=== PATIENT | male | born 1945 | race Two or more races ===

== ENCOUNTER → 2017-03-01 | Outpatient (CLI) | payer MEDICARE ==
[2017-03-01 10:38] LABS: APPEARANCE,URINE CLEAR; BILIRUBIN,URINE NEGATIVE (NEGATIVE); GLUCOSE, URINE NEGATIVE (NEGATIVE); KETONES,URINE NEGATIVE (NEGATIVE); LEUKOCYTE ESTERASE,URINE NEGATIVE (NEGATIVE); NITRITE,URINE NEGATIVE (NEGATIVE); PROTEIN,URINE NEGATIVE (NEGATIVE); UROBILINOGEN,URINE NEGATIVE mg/dL (<2.0)
[2017-03-01 10:40] LABS: ABSOLUTE EOSINOPHILS # (AUTO) 0.2 10^3/uL (0.0-0.6); ABSOLUTE LYMPHOCYTES (AUTO) 1.5 10^3/uL (0.5-4.7); ABSOLUTE MONOCYTES (AUTO) 0.6 10^3/uL (0.1-1.4); ABSOLUTE NEUT (AUTO) 3.2 10^3/uL (1.7-8.2); BASOPHILS % (AUTO) 0.6 % (0-2); EOSINOPHILS % (AUTO) 3.1 % (0-6); HEMATOCRIT 37.8 % (37.9-51.0); HEMOGLOBIN 11.9 g/dL (13.5-17.0); HGB HCT DIFFERENCE -2.1; LYMPHOCYTES % (AUTO) 27.1 % (13-45); MEAN CORPUSCULAR HEMOGLOBIN 27.6 pg (27.0-33.4); MEAN CORPUSCULAR HGB CONC 31.6 g/dL (32.0-36.0); MEAN CORPUSCULAR VOLUME 88 fl (80-97); MONOCYTES % (AUTO) 11.3 % (3-13); RED BLOOD COUNT 4.32 10^6/uL (4.35-5.55); RED CELL DISTRIBUTION WIDTH 14.9 % (11.5-14.0); SEGMENTED NEUTROPHILS % (AUTO) 57.9 % (42-78); WHITE BLOOD COUNT 5.6 10^3/uL (4.0-10.5)
--- NOTE | 2017-03-01 10:46 | RADIOLOGY REPORT (SQ) ---
EXAM DESCRIPTION: CHEST PA/LATERAL COMPLETED DATE/TIME: 03/01/2017 10:37 am REASON FOR STUDY: PRE OP COMPARISON: None. EXAM PARAMETERS: NUMBER OF VIEWS: two views TECHNIQUE: Digital Frontal and Lateral radiographic views of the chest acquired. RADIATION DOSE: NA LIMITATIONS: none FINDINGS: LUNGS AND PLEURA: No opacities, masses or pneumothorax. No pleural effusion. MEDIASTINUM AND HILAR STRUCTURES: No masses or contour abnormalities. HEART AND VASCULAR STRUCTURES: Heart normal size. No evidence for failure. BONES: No acute findings. HARDWARE: None in the chest. OTHER: No other significant finding. IMPRESSION: NO SIGNIFICANT RADIOGRAPHIC FINDING IN THE CHEST. TECHNICAL DOCUMENTATION: JOB ID: [id number] [employer]- All Rights Reserved
[2017-03-01 11:12] LABS: ANION GAP 12 (5-19); BLOOD UREA NITROGEN 22 mg/dL (7-20); CALCIUM 9.8 mg/dL (8.4-10.2); CARBON DIOXIDE 23 mmol/L (22-30); CHLORIDE 107 mmol/L (98-107); CREATININE RESULT 1.13 mg/dL (0.52-1.25); GLUCOSE 133 mg/dL (75-110); POTASSIUM 4.1 mmol/L (3.6-5.0); SODIUM 141.7 mmol/L (137-145)
--- NOTE | 2017-03-01 20:40 | EKG REPORT ---
SEVERITY:- ABNORMAL ECG - SINUS RHYTHM NONSPECIFIC INTRAVENTRICULAR CONDUCTION DELAY LEFT VENTRICULAR HYPERTROPHY : Confirmed by: Sydnee Roberts 01-Mar-2017 20:40:11
== END ==
LOC: OD 09:31
PROVIDERS: ATTEND Orthopaedic Surgery
DX: Z01.818 Encounter for other preprocedural examination (principal)
CPT/HCPCS: 36415; 71020; 80048; 81001; 83036; 85025; 93005; 93010

== ENCOUNTER 2017-03-29 05:31 | Inpatient (IN) | payer MEDICARE ==
[~2017-03-29 05:31] MED LIST: CEFAZOLIN INJ 1 GM VIAL IV PRN; IBUPROFEN 800 MG in NORMAL SALINE 250 ML IV PRN; LACTATED RINGERS 1000 ML IV PRN; LANSOPRAZOLE 15 MG TAB.RAP.DR PO PRN; LIDOCAINE 0.5% INJ-PF (5 MG/ML) 50 ML SDV SUBCUT PRN; OXYCODONE HCL SR 10 MG TABLET PO PRN; VANCOMYCIN HCL 1,000 MG in DEXTROSE 5%-WATER 250 ML IV PRN
[2017-03-29 06:43] LABS: POTASSIUM 4.4 mmol/L (3.6-5.0)
[2017-03-29] MEDS ORDERED: FENTANYL CITRATE INJ/PF 100 MCG/2 ML AMPUL ONE (06:46)
[2017-03-29] MEDS ORDERED: THROMBIN (BOVINE) 5000 UNIT EPITAXIS KIT ONE (06:46)
[2017-03-29] MEDS ORDERED: THROMBIN (BOVINE) TOPICAL 20000 UNIT VIAL ONE (06:46)
[2017-03-29] MEDS ORDERED: MIDAZOLAM 2 MG/2 ML INJ ONE (06:46)
[2017-03-29] MEDS ORDERED: BUPIVACAINE INJ/PF LIPOSOME/PF 266 MG/20 ML SDV ONE (06:46)
[2017-03-29] MEDS ORDERED: EPHEDRINE SULFATE INJ 50 MG/1 ML AMPULE ONE (06:47)
[2017-03-29] MEDS ORDERED: TRANEXAMIC ACID INJ/PF 1,000 MG/10 ML SDV IV ONE ×2 (06:47→10:30)
[2017-03-29] MEDS ORDERED: ACETAMINOPHEN 0 ML IV ONE (06:47)
[2017-03-29] MEDS ORDERED: IBUPROFEN INJ 800 MG/8 ML VIAL IV ONE (06:47)
[2017-03-29] MEDS ORDERED: PROPOFOL INJ 200 MG/20 ML VIAL IV ONE (06:47)
[2017-03-29] MEDS ORDERED: FENTANYL CITRATE INJ/PF 250 MCG/5 ML AMPULE ONE (07:00)
[2017-03-29] MEDS ORDERED: PROMETHAZINE HCL INJ 25 MG/1 ML VIAL IV PRN (08:16)
[2017-03-29] MEDS ORDERED: FENTANYL CITRATE INJ/PF 100 MCG/2 ML AMPUL IV PRN ×3 (08:16)
[2017-03-29] MEDS ORDERED: DIPHENHYDRAMINE HCL 50 MG/ML VIAL IV PRN ×2 (08:16→08:42)
--- NOTE | 2017-03-29 08:33 | Operative Report ---
Operative Report DATE OF SURGERY: 03/29/17 PREOPERATIVE DIAGNOSIS: Right knee arthritis OPERATION: Right knee arthroplasty SURGEON: LUIS EDUARDO MIRELES 1ST MICROFILM CAMERA OPERATOR: GRAZYNA JASSO ANESTHESIA: Spinal TISSUE REMOVED OR ALTERED: Bone to pathology ESTIMATED BLOOD LOSS: 100 PROCEDURE: Implants used: Femur: Sedalia triathlon #6 CR femur Tibia: 6 tibia Tibial liner: 9 mm CS insert Patella: 35 mm oval patella Procedure with the patient supine on the operating table the right the limb is prepped and draped in a sterile fashion. The limb was elevated for exsanguination and the tourniquet inflated to 280 torr. A standard midline median parapatellar approach the knee is taken. Access is gained to the femoral canal through the intercondylar notch. Intramedullary alignment instrumentation used to resect 10 mm of distal femur in 5 of valgus. Sizing guide indicated a size 6 femur. Appropriate cutting jig is then used to fashion anterior posterior and chamfer cuts. A trial reduction femurs performed and this is judged to be adequate. Attention was next turned to the tibia. Using an extra medullary alignment system 9 millimeters was resected off the lateral tibial plateau. This is sized to a size 6 tibia. A trial reduction was now performed with a 6 femur and a 6 tibia using a 9 millimeters spacer. It is full extension and central patellofemoral tracking. The articular surface the patella was next resected using an oscillating saw. All trial implants were removed. Polymethylmethacrylate is mixed and used to cement the above implants in place. On adequate curing the cement excess cement was removed the tourniquet was deflated hemostasis obtained the wound is then closed in layers using interrupted Vicryl followed by nikolai. A sterile compressive dressing was applied and the patient returned to recovery room in satisfactory condition.
[2017-03-29] MEDS ORDERED: ZOLPIDEM TARTRATE PO PRN (08:41)
[2017-03-29] MEDS ORDERED: MORPHINE SULFATE 10 MG/ML INJ IV PRN ×3 (08:42)
[2017-03-29] MEDS ORDERED: MORPHINE SULFATE 10 MG/ML INJ IM PRN (08:42)
[2017-03-29] MEDS ORDERED: ONDANSETRON HCL INJ/PF 4 MG/2 ML SDV IV PRN (08:42)
[2017-03-29] MEDS ORDERED: MAG HYDROX/AL HYDROX/SIMETH SUSP 30 ML UDCUP PO PRN (08:42)
[2017-03-29] MEDS ORDERED: ONDANSETRON 4 MG TAB.RAPDIS PO PRN (08:42)
[2017-03-29] MEDS ORDERED: ZOLPIDEM TARTRATE 5 MG TABLET PO PRN (08:42)
[2017-03-29] MEDS ORDERED: ACETAMINOPHEN 325 MG TABLET PO PRN (08:42)
--- NOTE | 2017-03-29 09:24 | RADIOLOGY REPORT (SQ) ---
EXAM DESCRIPTION: KNEE RIGHT 2 VIEWS COMPLETED DATE/TIME: 03/29/2017 9:07 am REASON FOR STUDY: Post OP -Long Cassette in PACU M17.11 UNILATERAL PRIMARY OSTEOARTHRITIS, RIGHT KN EE COMPARISON: None. NUMBER OF VIEWS: AP and lateral, two views TECHNIQUE: Digital radiographic images of the right knee post-procedure. LIMITATIONS: None. FINDINGS: BONES: No worrisome or unexpected findings post-procedure. DEVICE: Right total knee replacement with patellar resurfacing SOFT TISSUES: No worrisome findings. Expected postoperative soft tissue changes. IMPRESSION: SATISFACTORY POSTOPERATIVE RIGHT KNEE. TECHNICAL DOCUMENTATION: JOB ID: [id number] [employer]- All Rights Reserved
[2017-03-29] MEDS ORDERED: DEXTROSE 40% GEL 15 GM TUBE PO PRN (09:46)
[2017-03-29] MEDS ORDERED: DEXTROSE 50%-WATER SYRINGE 25 GM/50 ML DOSE IV PRN (09:46)
[2017-03-29] MEDS ORDERED: DEXTROSE 50%-WATER SYRINGE 12.5 GM/25 ML DOSE IV PRN (09:46)
[2017-03-29] MEDS ORDERED: INSULIN LISPRO 100 UNIT/ML 3 ML VIAL SUBCUT PRN (09:46)
[2017-03-29] MEDS ORDERED: GLUCAGON,HUMAN RECOMB 1 MG INJ IM PRN (09:46)
[2017-03-29] MEDS ORDERED: DEXTROSE 40% GEL 15 GM TUBE X 2 PO PRN (09:46)
[2017-03-29] MEDS ORDERED: ACARBOSE PO SCH (10:00)
[2017-03-29] MEDS ORDERED: HYDROCHLOROTHIAZIDE PO SCH (10:00)
[2017-03-29] MEDS ORDERED: ENALAPRIL PO SCH (10:00)
[2017-03-29] MEDS ORDERED: LIDOCAINE 2% INJ-PF (20 MG/ML) 10 ML AMPUL ONE (11:51)
[2017-03-29] MEDS ORDERED: GLYCOPYRROLATE INJ 0.4 MG/2 ML VIAL ONE (11:51)
[2017-03-29] MEDS ORDERED: ONDANSETRON HCL INJ/PF 4 MG/2 ML SDV ONE (11:51)
[2017-03-29] MEDS ORDERED: PHENYLEPHRINE HCL INJ/PF 10 MG/1 ML SDV ONE (11:51)
[2017-03-29] MEDS ORDERED: ACETAMINOPHEN 100 ML IV ONE ×2 (14:30→14:42)
[2017-03-29] MEDS: OXYCODONE HCL IR 5 MG TABLET PO PRN (15:12)
[2017-03-29] MEDS: METFORMIN HCL 500 MG TABLET PO SCH (16:36)
[2017-03-29] MEDS ORDERED: INFLUENZA ADLT QUAD (36MOS+) 2017-18 VAC 0.5 ML SYR IM PRN (17:13)
[2017-03-29] MEDS ORDERED: VALACYCLOVIR HCL 500 MG TABLET PO SCH (18:00)
[2017-03-29] MEDS ORDERED: METFORMIN HCL PO SCH (18:00)
[2017-03-29] MEDS: IBUPROFEN 800 MG in NORMAL SALINE 250 ML IV SCH (18:17)
[2017-03-29] MEDS: PREGABALIN 75 MG CAPSULE PO SCH (18:43)
[2017-03-29] MEDS ORDERED: VANCOMYCIN HCL 1,000 MG in DEXTROSE 5%-WATER 250 ML IV ONE (20:42)
[2017-03-29] MEDS: OXYCODONE HCL SR 10 MG TABLET PO SCH (21:42)
[2017-03-29] MEDS: RIVAROXABAN 10 MG TABLET PO SCH (21:42)
[2017-03-29] MEDS: ATORVASTATIN CALCIUM 40 MG TABLET PO SCH (21:42)
[2017-03-29] MEDS: VALACYCLOVIR HCL 500 MG TABLET PO SCH (21:42)
[2017-03-30] MEDS: IBUPROFEN 800 MG in NORMAL SALINE 250 ML IV SCH ×3 (01:14→17:22)
[2017-03-30] MEDS: LANSOPRAZOLE 30 MG TAB.RAP.DR PO SCH (05:25)
--- NOTE | 2017-03-30 07:06 | PDOC DISCHARGE SUMMARY ---
General - Admit/Disc Date/PCP Admission Date/Primary Care Provider: 03/29/17 05:31 KATELYNN REIS Discharge Date: 03/30/17 - Discharge Diagnosis (1) Arthritis of right knee Is this a current diagnosis for this admission?: Yes - Additional Information Resuscitation Status: Full Code Discharge Diet: As Tolerated, Regular Discharge Activity: Activity As Tolerated, No Driving, No tub bath Home Medications: Acarbose [Precose 100 mg Tablet] 1 tab PO DAILY 03/16/17 Atorvastatin Calcium 1 tab PO DAILY 03/16/17 Enalapril/Hydrochlorothiazide [Vasoretic 5-12.5 mg Tab] 1 tab PO DAILY 03/16/17 Glimepiride 1 tab PO DAILY 03/16/17 Metformin HCl 1 tab PO BID 03/16/17 Pioglitazone HCl [Actos] 1 tab PO DAILY 03/16/17 Sitagliptin Phosphate [Januvia] 1 tab PO DAILY 03/16/17 Valacyclovir HCl [Valacyclovir] 1 tab PO BID 03/16/17 Zolpidem Tartrate 1 tab PO ASDIR PRN 03/16/17 Oxycodone HCl [Oxy-Ir 5 mg Tablet] 5 mg PO Q6HP PRN tablet 03/30/17 Rivaroxaban [Xarelto 10 mg Tablet] 10 mg PO QHS tablet 03/30/17 History of Present Illness History of Present Illness: RENETTA WOLF SR is a 71 year old male progressive right knee pain and functional disability. Patient is admitted for elective right knee arthroplasty. Hospital Course Hospital Course: Patient is admitted through the operating room where he undergoes uncomplicated right knee arthroplasty. Is returned to the floor in satisfactory condition. Does very well from both a pain control standpoint as well as from a physical therapy standpoint. He ambulates 200 feet on the day of surgery. His compressive dressings removed on postop day 1. The underlying op site is clean dry and intact. There is minimal pedal edema. Distal neurovascular examination is intact. Physical Exam Vital Signs: Temp Pulse Resp BP Pulse Ox 36.6 C 66 16 94/54 L 97 03/30/17 03:32 03/30/17 03:32 03/30/17 03:32 03/30/17 03:32 03/30/17 03:32 Intake & Output 03/29/17 03/30/17 03/31/17 06:59 06:59 06:59 Intake Total 0 5425 Output Total 2450 Balance 0 2975 General appearance: PRESENT: no acute distress Head exam: PRESENT: normocephalic Eye exam: PRESENT: EOMI Respiratory exam: PRESENT: unlabored Cardiovascular exam: PRESENT: RRR Vascular exam: PRESENT: normal capillary refill GI/Abdominal exam: PRESENT: soft Rectal exam: PRESENT: deferred Extremities exam: PRESENT: other - Right knee OpSite is clean dry and intact. Minimal pedal edema. Distal neurovascular examination is intact. Neurological exam: PRESENT: alert, awake, oriented to person, oriented to place , oriented to time, oriented to situation, CN II-XII grossly intact. ABSENT: motor sensory deficit Psychiatric exam: PRESENT: appropriate affect, normal mood. ABSENT: homicidal ideation, suicidal ideation Skin exam: PRESENT: dry, intact, warm. ABSENT: cyanosis, rash Results Laboratory Results: 03/29/17 06:06 Impressions: Knee X-Ray 03/29/17 08:44 IMPRESSION: SATISFACTORY POSTOPERATIVE RIGHT KNEE. Status: Imported from PACS Plan Discharge Plan: Patient to be discharged home with home health nursing, home health physical therapy, wheeled walker, bedside commode. Follow-up be with Dr. Valdez and [facility] for surgery in 2 weeks for staple removal.
[2017-03-30 08:13] LABS: MEAN CORPUSCULAR HEMOGLOBIN 28.2 pg (27.0-33.4); MEAN CORPUSCULAR HGB CONC 32.4 g/dL (32.0-36.0); MEAN CORPUSCULAR VOLUME 87 fl (80-97); RED BLOOD COUNT 3.91 10^6/uL (4.35-5.55); RED CELL DISTRIBUTION WIDTH 14.9 % (11.5-14.0); WHITE BLOOD COUNT 6.2 10^3/uL (4.0-10.5)
[2017-03-30 08:31] LABS: ANION GAP 13 (5-19); BLOOD UREA NITROGEN 29 mg/dL (7-20); CARBON DIOXIDE 24 mmol/L (22-30); CHLORIDE 100 mmol/L (98-107); GLUCOSE 175 mg/dL (75-110); POTASSIUM 4.2 mmol/L (3.6-5.0); SODIUM 137.3 mmol/L (137-145)
[2017-03-30] MEDS: METFORMIN HCL 500 MG TABLET PO SCH ×2 (08:40→16:26)
[2017-03-30] MEDS ORDERED: GLIMEPIRIDE 4 MG TABLET PO SCH ×2 (10:00→22:00)
[2017-03-30] MEDS ORDERED: ACARBOSE 50 MG TABLET PO SCH ×2 (10:00→22:00)
[2017-03-30] MEDS ORDERED: SITAGLIPTIN PHOSPHATE PO SCH (10:00)
[2017-03-30] MEDS: ENALAPRIL MALEATE 5 MG TABLET PO SCH (10:33)
[2017-03-30] MEDS: OXYCODONE HCL SR 10 MG TABLET PO SCH ×2 (10:34→21:40)
[2017-03-30] MEDS: SITAGLIPTIN PHOSPHATE 50 MG TABLET PO SCH (10:35)
[2017-03-30] MEDS: PIOGLITAZONE HCL 30 MG TABLET PO SCH (10:35)
[2017-03-30] MEDS: HYDROCHLOROTHIAZIDE 12.5 MG CAPSULE PO SCH (10:35)
[2017-03-30] MEDS: PREGABALIN 75 MG CAPSULE PO SCH ×2 (10:37→17:08)
[2017-03-30] MEDS: VALACYCLOVIR HCL 500 MG TABLET PO SCH ×2 (10:48→21:39)
[2017-03-30] MEDS: OXYCODONE HCL IR 5 MG TABLET PO PRN (16:26)
[2017-03-30] MEDS: RIVAROXABAN 10 MG TABLET PO SCH (21:42)
[2017-03-30] MEDS: ATORVASTATIN CALCIUM 40 MG TABLET PO SCH (21:43)
[2017-03-31] MEDS: IBUPROFEN 800 MG in NORMAL SALINE 250 ML IV SCH (01:03)
[2017-03-31] MEDS: LANSOPRAZOLE 30 MG TAB.RAP.DR PO SCH (05:05)
[2017-03-31 07:21] LABS: HEMATOCRIT 31.4 % (37.9-51.0); HEMOGLOBIN 10.3 g/dL (13.5-17.0); HGB HCT DIFFERENCE -0.5; MEAN CORPUSCULAR HEMOGLOBIN 28.3 pg (27.0-33.4); MEAN CORPUSCULAR HGB CONC 32.7 g/dL (32.0-36.0); MEAN CORPUSCULAR VOLUME 87 fl (80-97); RED BLOOD COUNT 3.62 10^6/uL (4.35-5.55); RED CELL DISTRIBUTION WIDTH 14.8 % (11.5-14.0); WHITE BLOOD COUNT 8.2 10^3/uL (4.0-10.5)
[2017-03-31 07:36] VITALS: BP 127/65
[2017-03-31] MEDS: METFORMIN HCL 500 MG TABLET PO SCH (07:47)
[2017-03-31] MEDS: OXYCODONE HCL IR 5 MG TABLET PO PRN (07:48)
[2017-03-31] MEDS: ENALAPRIL MALEATE 5 MG TABLET PO SCH (10:32)
[2017-03-31] MEDS: OXYCODONE HCL SR 10 MG TABLET PO SCH (10:32)
[2017-03-31] MEDS: HYDROCHLOROTHIAZIDE 12.5 MG CAPSULE PO SCH (10:33)
[2017-03-31] MEDS: SITAGLIPTIN PHOSPHATE 50 MG TABLET PO SCH (10:33)
[2017-03-31] MEDS: PREGABALIN 75 MG CAPSULE PO SCH (10:33)
[2017-03-31] MEDS: PIOGLITAZONE HCL 30 MG TABLET PO SCH (10:34)
[2017-03-31] MEDS: VALACYCLOVIR HCL 500 MG TABLET PO SCH (10:34)
== END 2017-03-31 11:45 | disposition home health service (06) | DRG 470 ==
LOC: INOR 05:31 → 4S 10:05
PROVIDERS: ADMIT Orthopaedic Surgery; ATTEND Orthopaedic Surgery
PROC: 0SRC0J9 Replacement of Right Knee Joint with Synthetic Substitute, Cemented, Open Approach (ICD-10-PCS; principal; 2017-03-29 07:30)
PROC: 3E0234Z Introduction of Serum, Toxoid and Vaccine into Muscle, Percutaneous Approach (ICD-10-PCS; 2017-03-31)
DX: M17.11 Unilateral primary osteoarthritis, right knee (principal); I10 Essential (primary) hypertension; E11.9 Type 2 diabetes mellitus without complications; E78.5 Hyperlipidemia, unspecified; Z23 Encounter for immunization; Z79.84 Long term (current) use of oral hypoglycemic drugs; Z79.4 Long term (current) use of insulin; Z79.899 Other long term (current) drug therapy; Z87.891 Personal history of nicotine dependence
CPT/HCPCS: 01402; 36415; 80048; 82947; 82962; 84132; 85027; 88304; 88311; 90686; 94799; C1877; C2625; C9290; G8978-GP; G8979-GP; G8987-GO; G8988-GO; J0131; J0690; J1741; J2250; J2270; J2370; J2405; J2704; J3010; J3370; J3490; J7050; J7060

== ENCOUNTER 2020-01-26 19:52 | Emergency (ER) | payer MEDICARE, OTHER ==
--- NOTE | 2020-01-26 20:28 | ER Document Report ---
ED Medical Screen (RME) - General Chief Complaint: Abdominal Swelling Stated Complaint: ABDOMINAL SWELLING Time Seen by Provider: 01/26/20 20:20 Primary Care Provider: FELICIA NICHOLSON FNP [Primary Care Provider] - Follow up as needed Notes: Patient is a 74-year-old male who presents emergency department with a chief complaint of abdominal pain and distention. Patient states that over the past month the patient has had increased abdominal bloating. Patient is also had lower extremity swelling. States he had a normal bowel movement today. Exam: Very distended and firm abdomen. I have greeted and performed a rapid initial assessment of this patient. A comprehensive ED assessment and evaluation of the patient, analysis of test results and completion of medical decision making process will be conducted by an additional ED providers. TRAVEL OUTSIDE OF THE [place] IN LAST 30 DAYS: No - Related Data Allergies/Adverse Reactions: No Known Allergies Allergy (Unverified 03/16/17 10:01) Past Medical History - Past Medical History Cardiac Medical History: Reports: Hx Hypertension Denies: Hx Atrial Fibrillation, Hx Congestive Heart Failure, Hx Coronary Artery Disease, Hx Heart Attack, Hx Hypercholesterolemia, Hx Peripheral Vascular Disease, Hx Heart Murmur Pulmonary Medical History: Endocrine Medical History: Denies: Hx Graves' Disease, Hx Hyperthyroidism, Hx Hypothyroidism Musculoskeltal Medical History: Reports Hx Arthritis, Denies Hx Fibromyalgia, Denies Hx Muscular Dystrophy, Denies Hx Systemic Lupus Erythematosus Traumatic Medical History: Denies: Hx Fractures Past Surgical History: Denies: Hx Appendectomy, Hx Bowel Surgery, Hx Cholecystectomy, Hx Coronary Artery Bypass Graft, Hx Gastric Bypass Surgery, Hx Herniorrhaphy, Hx Tonsillectomy Physical Exam - Vital signs Vitals: Temp Pulse Resp BP Pulse Ox 98.8 F 87 18 129/55 H 95 01/26/20 19:53 01/26/20 19:53 01/26/20 19:53 01/26/20 19:53 01/26/20 19:53 Course - Vital Signs Vital signs: Temp Pulse Resp BP Pulse Ox 98.8 F 87 18 129/55 H 95 01/26/20 19:53 01/26/20 19:53 01/26/20 19:53 01/26/20 19:53 01/26/20 19:53 Doctor's Discharge - Discharge Referrals: LYN,FELICIA, TRAVEL CONSULTANT [Primary Care Provider] - Follow up as needed
[2020-01-26 21:35] LABS: ABSOLUTE EOSINOPHILS # (AUTO) 0.3 10^3/uL (0.0-0.6); ABSOLUTE LYMPHOCYTES (AUTO) 0.9 10^3/uL (0.5-4.7); ABSOLUTE MONOCYTES (AUTO) 0.8 10^3/uL (0.1-1.4); ABSOLUTE NEUT (AUTO) 4.1 10^3/uL (1.7-8.2); BASOPHILS % (AUTO) 0.8 % (0-2); EOSINOPHILS % (AUTO) 4.1 % (0-6); HEMATOCRIT 34.6 % (37.9-51.0); HEMOGLOBIN 11.1 g/dL (13.5-17.0); LYMPHOCYTES % (AUTO) 14.2 % (13-45); MEAN CORPUSCULAR HEMOGLOBIN 27.2 pg (27.0-33.4); MEAN CORPUSCULAR VOLUME 85 fl (80-97); MONOCYTES % (AUTO) 13.7 % (3-13); PLATELET COUNT 204 10^3/uL (150-450); RED BLOOD COUNT 4.08 10^6/uL (4.35-5.55); RED CELL DISTRIBUTION WIDTH 17.1 % (11.5-14.0); SEGMENTED NEUTROPHILS % (AUTO) 67.2 % (42-78); TOTAL CELLS COUNTED % (AUTO) 100 %
[2020-01-26 21:51] LABS: ALBUMIN 3.2 g/dL (3.5-5.0); ALKALINE PHOSPHATASE 136 U/L (38-126); ANION GAP 9 (5-19); ASPARTATE AMINO TRANSFERASE 49 U/L (17-59); BILIRUBIN,TOTAL 0.9 mg/dL (0.2-1.3); BLOOD UREA NITROGEN 11 mg/dL (7-20); CARBON DIOXIDE 24 mmol/L (22-30); CHLORIDE 102 mmol/L (98-107); GLUCOSE 147 mg/dL (75-110); POTASSIUM 4.9 mmol/L (3.6-5.0); TOTAL PROTEIN 7.4 g/dL (6.3-8.2)
--- NOTE | 2020-01-26 23:42 | RADIOLOGY REPORT (SQ) ---
EXAM DESCRIPTION: CT abdomen and pelvis with contrast CLINICAL HISTORY: 74 years Male, abdominal distension COMPARISON: None. TECHNIQUE: Axial images of the abdomen and pelvis were performed without the use of intravenous contrast, with sagittal and coronal reformatted images. This exam was performed according to our departmental dose-optimization program which includes use of Automated Exposure Control, adjustment of the mA and/or kV according to patient size and/or use of iterative reconstruction technique. FINDINGS: There is cirrhosis. There are mild esophageal varices. There is a large amount of ascites in the abdomen and pelvis. There are streaky changes in the omental fat. There is diverticulosis without diverticulitis. There is no significant radiographic abnormality of the spleen, pancreas, adrenal glands or kidneys. There is bilateral spondylolysis at L5, with anterior spondylolisthesis of L5 over S1, with severe degenerative changes at the L5-S1 level. IMPRESSION: Cirrhosis, with mild esophageal varices and a large amount of ascites. Streaky changes in the omental fat may merely represent edema, however, other etiologies such as peritonitis or peritoneal carcinomatosis cannot be excluded. Other findings as described.
--- NOTE | 2020-01-27 03:35 | ER Document Report ---
ED General - General Chief Complaint: Abdominal Swelling Stated Complaint: ABDOMINAL SWELLING Time Seen by Provider: 01/26/20 20:20 Primary Care Provider: FELICIA NICHOLSON FNP [Primary Care Provider] - Follow up as needed TRAVEL OUTSIDE OF THE [place] IN LAST 30 DAYS: No - HPI Notes: 74-year-old male history of former smoker, diabetes presents with 1 month gradually worsening abdominal swelling associated with shortness of breath and whistling sound while breathing. Patient states that he has never seen anybody about this other than his [facility] BLOWER at [facility] via telemedicine visit 1 month ago, however when attempting to transfer patient Dr. Vega says EMR shows he has seen gastroenterology for ascites a month ago. Patient endorses unexplained weight loss. Patient denies history, former or current alcohol abuse or IV drug use, HBV/HCV, prior diagnosis/evaluations for current symptoms, abdominal pain, unexplained bruising, vomiting, abnormal bowel movements, fever, confusion, dizziness, syncope, chest pain, COPD/asthma history - Related Data Allergies/Adverse Reactions: No Known Allergies Allergy (Unverified 03/16/17 10:01) Home Medications: trulance,actos Past Medical History - General Information source: Patient, Relative - Social History Smoking Status: Never Smoker Frequency of alcohol use: Social Family History: Reviewed & Not Pertinent Patient has homicidal ideation: No - Past Medical History Cardiac Medical History: Reports: Hx Hypertension Denies: Hx Atrial Fibrillation, Hx Congestive Heart Failure, Hx Coronary Artery Disease, Hx Heart Attack, Hx Hypercholesterolemia, Hx Peripheral Vascular Disease, Hx Heart Murmur Pulmonary Medical History: Endocrine Medical History: Reports: Hx Diabetes Mellitus Type 2. Denies: Hx Graves' Disease, Hx Hyperthyroidism, Hx Hypothyroidism Musculoskeletal Medical History: Reports Hx Arthritis, Denies Hx Fibromyalgia, Denies Hx Muscular Dystrophy, Denies Hx Systemic Lupus Erythematosus Traumatic Medical History: Denies: Hx Fractures Past Surgical History: Denies: Hx Appendectomy, Hx Bowel Surgery, Hx Cholecystec dean, Hx Coronary Artery Bypass Graft, Hx Gastric Bypass Surgery, Hx Herniorrhaphy, Hx Tonsillectomy - Immunizations Hx Pneumococcal Vaccination: 03/21/16 Review of Systems - Review of Systems Notes: REVIEW OF SYSTEMS: CONSTITUTIONAL : Denies fever, chills, or sweats. EENT: Denies recent cold/sinus symptoms, denies throat pain CARDIOVASCULAR: Denies chest pain, +JANET RESPIRATORY: Denies cough, + shortness of breath. GASTROINTESTINAL: Denies abdominal pain, nausea/vomiting. GENITOURINARY: Denies difficulty urinating, painful urination. MUSCULOSKELETAL: Denies neck pain, back pain. SKIN: Denies rash or skin lesions. HEMATOLOGIC : Denies easy bruising or bleeding. LYMPHATIC: Denies swollen, enlarged glands. NEUROLOGICAL: Denies headache, denies change in gait. PSYCHIATRIC: Denies anxiety or stress or depression. Physical Exam - Vital signs Vitals: Temp Pulse Resp BP Pulse Ox 98.8 F 87 18 129/55 H 95 01/26/20 19:53 01/26/20 19:53 01/26/20 19:53 01/26/20 19:53 01/26/20 19:53 - Notes Notes: PHYSICAL EXAMINATION: GENERAL: Cachectic appearing elderly man with no acute distress HEAD: Atraumatic, normocephalic. EYES: Pupils equal round and appropriate constriction, sclera anicteric, conjunctiva are normal. ENT: nares patent, moist mucous membranes. NECK: Normal range of motion, supple without lymphadenopathy LUNGS: Mild tachypnea, no wheezing, good air movement, expiratory stridor, speaking in several word sentences HEART: Regular rate and rhythm without murmurs ABDOMEN: Massively distended abdomen, mild hyperemia diffusely over abdomen, no fluid wave, positive hepatosplenomegaly, no tenderness EXTREMITIES: Diffuse edema symmetric bilaterally, no calf tenderness NEUROLOGICAL: Awake, alert, conversing appropriately, moves all extremities spontaneously. PSYCH: Normal mood, normal affect. SKIN: Warm, Dry, normal turgor, no rashes or lesions noted. Course - Re-evaluation Re-evalutation: 01/27/20 03:35 New onset cirrhosis with massive ascites which is restricting patient's breathing. Pt without any alcohol abuse hx and no risk factors for HBV, HCV, presentation concerning for new cirrhosis/ascites 2/2 undiagnosed malignancy. Patient also has expiratory stridor but has been present for approximately 1 month as per patient and no signs of impending airway failure. No indication for intervention emergently in ED, will defer to inpatient team. Patient requires therapeutic and diagnostic paracentesis. No signs of infection/SBP, patient accepted for transfer at [facility] by Dr. Vega - Vital Signs Vital signs: Temp Pulse Resp BP Pulse Ox 97.7 F 72 24 H 151/78 H 98 08/08/20 08:00 01/27/20 08:00 01/27/20 08:00 01/27/20 08:00 01/27/20 08:00 - Laboratory Result Diagrams: 01/26/20 21:12 01/26/20 21:12 Laboratory results interpreted by me: 01/26/20 01/26/20 01/26/20 21:12 21:12 21:12 RBC 4.08 L Hgb 11.1 L Hct 34.6 L RDW 17.1 H Nelson % (Auto) 13.7 H PT APTT Sodium 134.6 L Glucose 147 H Alkaline Phosphatase 136 H NT-Pro-B Natriuret Pep 277 H Albumin 3.2 L 01/27/20 03:38 RBC Hgb Hct RDW Nelson % (Auto) PT 15.9 H APTT 46.8 H Sodium Glucose Alkaline Phosphatase NT-Pro-B Natriuret Pep Albumin Discharge - Discharge Clinical Impression: Ascites Qualifiers: Ascites type: other type Qualified Code(s): R18.8 - Other ascites Cirrhosis Qualifiers: Hepatic cirrhosis type: unspecified hepatic cirrhosis Ascites presence: with ascites Qualified Code(s): K74.60 - Unspecified cirrhosis of liver; R18.8 - Other ascites Disposition: [facility] Referrals: FELICIA NICHOLSON FNP [Primary Care Provider] - Follow up as needed
[2020-01-27 03:54] LABS: INTERNATIONAL RATION (INR) 1.25; PROTHROMBIN TIME 15.9 SEC (11.4-15.4)
[2020-01-27 03:55] LABS: PARTIAL THROMBOPLASTIN TIME 46.8 SEC (23.5-35.8)
[2020-01-27 04:04] LABS: APPEARANCE,URINE CLEAR; BILIRUBIN,URINE NEGATIVE (NEGATIVE); COLOR,URINE YELLOW; GLUCOSE, URINE NEGATIVE (NEGATIVE); KETONES,URINE NEGATIVE (NEGATIVE); PROTEIN,URINE NEGATIVE (NEGATIVE); URINE SPECIFIC GRAVITY 1.048; UROBILINOGEN,URINE NEGATIVE mg/dL (<2.0)
[2020-01-27 08:27] VITALS: BP 151/78
== END 2020-01-27 08:15 | disposition short-term general hospital (02) ==
LOC: ER 19:52
DX: R19.00 Intra-abdominal and pelvic swelling, mass and lump, unspecified site (principal); R10.30 Lower abdominal pain, unspecified; R06.02 Shortness of breath; I10 Essential (primary) hypertension
CPT/HCPCS: 36415; 74177; 80053; 81001; 83880; 85025; 85610; 85730; 99285